=== PATIENT | female | born 1980 | race Caucasian/White ===

== ENCOUNTER → 2018-05-08 16:23 | Outpatient (CLI) | payer OTHER, SELFPAY ==
[2018-05-08 18:00] LABS: Thyroid Stimulating Hormone 3.14 uIU/mL (0.47-4.68)
== END ==
PROVIDERS: Family Provider Family Medicine; PCP Family Medicine; Visit Provider Family Medicine
DX: E03.9 Hypothyroidism, unspecified (principal)
CPT/HCPCS: 36415; 84443

== ENCOUNTER → 2018-05-27 10:02 | Outpatient (CLI) | payer OTHER, SELFPAY ==
[2018-05-27 11:18] LABS: Add Manual Diff / Slide Review NO; Basophils Percent Auto 0.5 % (0-2); Eosinophils Percent Auto 1.2 % (2-4); Hematocrit 35.1 % (36-46); Hemoglobin 12.3 g/dL (12.0-16.0); Lymphocytes Percent Auto 28.9 % (25-40); Mean Corpuscular HGB Conc 35.1 % (30-36); Mean Corpuscular Hemoglobin 30.7 PG (26-34); Mean Corpuscular Volume 87.4 fL (80-100); Neutrophils Absolute Auto 2700 /uL (3000-5900); Neutrophils Percent Auto 60.4 % (50-75); Platelet Count 210 X10^3/uL (150-400); Red Blood Cell Count 4.01 X10^6/uL (4.0-5.2); Red Cell Distribution Width 13.2 % (11.6-14.8); White Blood Cell Count 4.5 X10^3/uL (4.5-11.0)
[2018-05-27 12:13] LABS: Hepatitis B Surface Antigen NEGATIVE s/c (NEGATIVE); Rubella Antibody IgG 22.1 IU/mL (>15)
[2018-05-27 12:36] LABS: HIV 1 and 2 Antibody NEGATIVE (NEGATIVE); Hep C Virus Ab w/Reflex Quant NEGATIVE s/c (NEGATIVE)
[2018-05-27 12:42] LABS: Appearance Urine UA CLEAR; Bilirubin Urine UA NEGATIVE (NEGATIVE); Color Urine UA YELLOW; Glucose Urine UA NEGATIVE (Normal); Ketones Urine UA TRACE (NEGATIVE); Leukocyte Esterase Urine UA NEGATIVE (NEGATIVE); Nitrite Urine UA NEGATIVE (Negative); Occult Blood Urine UA NEGATIVE (Negative); Protein Urine UA TRACE (Negative); Specific Gravity Urine UA 1.025 (1.000-1.035); Urobilinogen Urine UA 0.2 E.U./dL (0.2); pH Urine UA 5.5 (4.5-8.0)
[2018-05-29 14:21] LABS: RPR Screen Nonreactive (Nonreactive)
[2018-05-29 15:20] LABS: HSV 2 IGG AB < 0.90 index (< 0.90)
== END ==
PROVIDERS: PCP Family Medicine; Visit Provider Obstetrics & Gynecology
DX: Z34.01 Encounter for supervision of normal first pregnancy, first trimester (principal); Z3A.01 Less than 8 weeks gestation of pregnancy
CPT/HCPCS: 36415; 80055; 81003; 86695; 86696; 86703; 86787; 86803; 86850; 86900; 86901; 87086

== ENCOUNTER 2018-10-08 21:20 | Emergency (ER) | payer OTHER, SELFPAY ==
[2018-10-08 21:25] VITALS: BP 140/84; PULSE 61; RESP 16; TEMP 36.9; O2SAT 99; BMI 34.2
--- NOTE | 2018-10-08 21:46 | ED_ITS ---
HPI - Abdominal Pain General Chief Complaint: Abdominal Pain Stated Complaint: Abd Pain,Sent from Walk In Time Seen by Provider: 10/08/18 21:45 Source: patient Mode of arrival: ambulatory Limitations: no limitations History of Present Illness HPI narrative: 38-year-old female sent over from the walk-in clinic for ab dominal pain. Patient states that has been going on for the past day. Seems to be generalized pain however also seems to be localized in the right lower quadrant. Some nausea but no vomiting. No urinary symptoms. Does take daily fiber however is missed the past couple days. Did have a bowel movement today. No urinary symptoms. Related Data Previous Rx's Medication Instructions Recorded levothyroxine 112 mcg tablet 112 mcg PO QAM #90 tab 09/04/18 Allergies Allergy/AdvReac Type Severity Reaction Status Date / Time amoxicillin Allergy Unknown HIVES Verified 10/08/18 21:24 Penicillins Allergy Unknown HIVES Verified 10/08/18 21:24 Review of Systems Constitutional Denies fever(s) Respiratory Denies cough Gastrointestinal Gastrointestinal: Reports abdominal pain, Reports nausea and Denies vomiting Genitourinary Denies dysuria Musculoskeletal Denies myalgias and Denies arthralgias Integumentary/Breasts Denies rash Neurologic Denies behavioral changes Psychiatric Denies behavioral changes [facility] Medical History Acne (Chronic 1994) Depression (Chronic 1994) Hayfever (Chronic 1991) Hypothyroidism (Chronic 2006) Chicken pox (Resolved 1985) Social History Smoking Status: Never smoker Exam Initial Vital Signs Initial Vital Signs: Vital Signs Temperature 98.5 F 10/08/18 21:25 Pulse Rate 61 10/08/18 21:25 Respiratory Rate 16 10/08/18 21:25 Blood Pressure 140/84 10/08/18 21:25 Pulse Oximetry 99 10/08/18 21:25 Const General: cooperative, healthy appearing, comfortable, well developed, well groomed and No acute distress Orientation: alert, awake and oriented x3 Resp Effort & Inspection: normal respiratory effort Auscultation: clear to auscultation bilaterally Cardio Rate: regular rate GI Inspection: non-distended Palpation: soft, No firm, No guarding and tender (Upper abdomen and right lower quadrant) Skin Lesions: no lesions Rashes: no rashes Neuro General: alert, awake and oriented x3 Extrem General: capillary refill normal Psych Appearance: grossly normal and well kempt Course Orders Ordered: ED Orders 10/08/18 21:52 CT abdomen pelvis w con Stat 10/08/18 22:50 Complete Blood Count AUTO DIFF Stat Comprehensive Metabolic Panel Stat Lipase Stat Discontinued Medications Sodium Chloride (Normal Saline 0.9%) 1,000 mls @ 1,000 mls/hr IV BOLUS ONE Stop: 10/08/18 22:51 Last Infusion: 10/08/18 23:51 Dose: 0 mls/hr Infusion: 10/08/18 23:23 Dose: 1,000 mls/hr Infusion: 10/08/18 23:11 Dose: 0 mls/hr Admin: 10/08/18 22:15 Dose: 1,000 mls/hr Vital Signs - 8 hr 10/08/18 21:25 10/09/18 00:15 10/09/18 01:26 Temperature 98.5 F Pulse Rate 61 62 63 Respiratory Rate 16 13 16 Blood Pressure 140/84 120/63 Blood Pressure [Right Arm] 126/77 Pulse Oximetry 99 100 100 MDM - Abdominal Pain Lab Data Attestation: I reviewed the patient's lab results. Result diagrams: 10/08/18 22:50 10/08/18 22:50 Lab Results 10/08/18 10/08/18 Range/Units 22:50 22:50 WBC 6.0 (4.5-11.0) X10^3/uL RBC 4.20 (4.0-5.2) X10^6/uL Hgb 12.1 (12.0-16.0) g/dL Hct 35.6 L (36-46) % MCV 84.7 (80-100) fL MCH 28.7 (26-34) PG MCHC 33.9 (30-36) % RDW 14.4 (11.6-14.8) % Plt Count 221 (150-400) X10^3/uL Neut % (Auto) 69.9 (50-75) % Lymph % (Auto) 21.7 L (25-40) % [place] % (Auto) 7.3 (3-14) % Eos % (Auto) 0.7 L (2-4) % Baso % (Auto) 0.4 (0-2) % Neut # (Auto) 4200 (0822-1664) /uL Lymph # (Auto) 1300 (3946-1744) /uL [place] # (Auto) 400 (0-900) /uL Eos # (Auto) 0 (0-450) /uL Baso # (Auto) 0 (0-100) /uL Sodium 140 (137-145) mmol/L Potassium 3.8 (3.4-5.1) mmol/L Chloride 104 (98-107) mmol/L Carbon Dioxide 25 (22-32) mmol/L BUN 12 (7-17) mg/dL Creatinine 0.70 (0.52-1.04) mg/dL Estimated GFR > 60.0 (>60) mL/min BUN/Creatinine Ratio 17.1 (6-22) Glucose 96 (70-100) mg/dL Calcium 8.7 (8.4-10.2) mg/dL Total Bilirubin 1.1 (0.2-1.3) mg/dL AST 20 (14-36) IU/L ALT 28 (9-52) IU/L Alkaline Phosphatase 78 (38-126) U/L Total Protein 7.4 (6.3-8.2) g/dL Albumin 4.2 (3.5-5.0) g/dL Globulin 3.2 (1.7-4.1) g/dL Albumin/Globulin Ratio 1.3 (1.0-2.8) Lipase 112 (23-300) U/L Point of care testing: Point of Care Testing Test Results Negative Urine Dip Bedside Urine Glucose Negative Bedside Urine Bilirubin - Negative Bedside Urine Ketone +/- 5 Urine Specific [place] 1.030 Bedside Urine Occult Blood - Negative Bedside Urine pH 5.5 Bedside Urine Protein - Negative Bedside Urine Urobilinogen - Negative Bedside Urine Nitrite - Negative Bedside Urine Leukocytes - Negative Esterase Imaging Data CT scan - abdomen: Radiologist's impression: Normal appendix No diverticulitis or bowel obstruction. Right ovarian cyst likely physiologic. Consider followup unexplained symptoms persist. MDM Narrative Medical decision making narrative: Patient benign abdomen. Labs unremarkable. CT scan shows a normal appendix. Does have a right ovarian cyst which could be the cause of her symptoms. It does mention on the CT scan a large amount of stool in the colon. This could also be the cause of her symptoms. Patient states that she has had constipation in the past. Will hold on further workup for now. Patient was given return precautions. She expressed understanding and agreement with plan. Discharge Plan Departure Patient Disposition: Home Clinical Impression: Abdominal pain Qualifiers: Abdominal location: generalized Qualified Code(s): R10.84 - Generalized abdominal pain Constipation Qualifiers: Constipation type: unspecified constipation type Qualified Code(s): K59.00 - Constipation, unspecified Discharge Date/Time: 10/09/18 01:30 Interventions: ED Discharge Assessment Last Done: 10/09/18 01:26 Instructions: Acute Abdominal Pain Activity Restrictions/Additional Instructions: Would recommend that you start taking a laxative like we discussed. Contact you r primary care doctor for a follow-up. Return to the emergency department for any new or worsening symptoms Prescriptions: No Action levothyroxine 112 mcg tablet 112 mcg PO QAM Qty: 90 RF: 0 Referrals: Danette Urrutia DO [Primary Care Provider] -
--- NOTE | 2018-10-08 21:52 | DI.CT.S_ITS ---
PROCEDURE: CT ABDOMEN PELVIS W CON INDICATIONS: right-sided abdominal pain, eval for appy TECHNIQUE: After the administration of intravenous contrast, 5 mm thick sections acquired from the diaphragm to the symphysis. 5 mm coronal and sagittal reformats were acquired. For radiation dose reduction, the following was used: automated exposure control, adjustment of mA and/or kV according to patient size. COMPARISON: None. FINDINGS: Image quality: Excellent. ABDOMEN: Lung bases: Lung bases are clear. Heart size is normal. Solid organs: Liver is normal in size and enhancement. Gallbladder is surgically absent. Biliary system is non dilated. Pancreas enhances normally. Spleen is enlarged in size measuring about 16.1 cm in length, and normal in enhancement. No adrenal nodules. Kidneys demonstrate normal size and enhancement, without hydronephrosis. Peritoneum and bowel: Bowel loops demonstrate normal wall thickness and caliber. No free fluid or air. Normal appendix. Nodes and vessels: No retroperitoneal or mesenteric adenopathy by size criteria. Aorta and inferior vena cava are normal in size. Miscellaneous: No ventral hernias. PELVIS: Genitourinary: Bladder wall thickness is normal. The dominant ovarian cyst in the right adnexa measuring about 4.6 cm. Trace amount of adjacent posterior right adnexal fluid. Miscellaneous: No inguinal hernias or adenopathy. Bones: No suspicious bony lesions. No vertebral body compression fractures. IMPRESSION: 1. Dominant right ovarian follicle with trace fluid suggesting recent cyst rupture. 2. Normal appendix. 3. Cholecystectomy. 4. Splenomegaly, potentially physiologic for the patient. Clinical correlation suggested. Concordant with preliminary report. Dictated by: Greer Salcido M.D. on 10/09/2018 at 8:04 Approved by: Greer Salcido M.D. on 10/09/2018 at 8:09
[2018-10-08] MEDS: SODIUM CHLORIDE 0.9% 1,000 ML 1000 ML IV (22:15)
[2018-10-08 22:55] LABS: Add Manual Diff / Slide Review NO; Basophils Absolute Auto 0 /uL (0-100); Basophils Percent Auto 0.4 % (0-2); Eosinophils Absolute Auto 0 /uL (0-450); Eosinophils Percent Auto 0.7 % (2-4); Hematocrit 35.6 % (36-46); Hemoglobin 12.1 g/dL (12.0-16.0); Lymphocytes Absolute Auto 1300 /uL (1100-4500); Lymphocytes Percent Auto 21.7 % (25-40); Mean Corpuscular HGB Conc 33.9 % (30-36); Mean Corpuscular Hemoglobin 28.7 PG (26-34); Mean Corpuscular Volume 84.7 fL (80-100); Monocytes Absolute Auto 400 /uL (0-900); Monocytes Percent Auto 7.3 % (3-14); Neutrophils Absolute Auto 4200 /uL (1500-7000); Neutrophils Percent Auto 69.9 % (50-75); Platelet Count 221 X10^3/uL (150-400); Red Cell Distribution Width 14.4 % (11.6-14.8)
[2018-10-08 23:04] LABS: Alanine Aminotransferase 28 IU/L (9-52); Albumin 4.2 g/dL (3.5-5.0); Albumin Globulin Ratio 1.3 (1.0-2.8); Alkaline Phosphatase 78 U/L (38-126); Aspartate Aminotransferase 20 IU/L (14-36); BUN Creatinine Ratio 17.1 (6-22); Bilirubin Total 1.1 mg/dL (0.2-1.3); Blood Urea Nitrogen 12 mg/dL (7-17); Calcium 8.7 mg/dL (8.4-10.2); Carbon Dioxide 25 mmol/L (22-32); Chloride 104 mmol/L (98-107); Estimated Glomerular Filt Rate > 60.0 mL/min (>60); Globulin 3.2 g/dL (1.7-4.1); Glucose 96 mg/dL (70-100); HEMOLYSIS < 15 (0-50); Lipase 112 U/L (23-300); Potassium 3.8 mmol/L (3.4-5.1); Sodium 140 mmol/L (137-145); Total Protein 7.4 g/dL (6.3-8.2)
[2018-10-09 00:15] VITALS: BP 126/77; PULSE 62; RESP 13; O2SAT 100
[2018-10-09 01:26] VITALS: BP 120/63; PULSE 63; RESP 16; O2SAT 100
== END 2018-10-09 01:30 | disposition home or self-care (01) ==
PROVIDERS: Emergency Provider Emergency Medicine; Family Provider Family Medicine; PCP Family Medicine
DX: R10.84 Generalized abdominal pain (principal); K59.00 Constipation, unspecified
CPT/HCPCS: 36591; 74177; 80053; 81003; 81025; 83690; 85025; 96360; 99283; 99284; Q9967

== ENCOUNTER → 2018-12-03 11:59 | Outpatient (CLI) | payer OTHER, SELFPAY ==
[2018-12-03 15:39] LABS: TSH w/ Reflex to FT4 2.84 uIU/mL (0.47-4.68)
== END ==
PROVIDERS: Family Provider Family Medicine; PCP Family Medicine; Visit Provider Family Medicine
DX: E03.9 Hypothyroidism, unspecified (principal)
CPT/HCPCS: 36415; 84443

== ENCOUNTER → 2018-12-30 16:20 | Outpatient (CLI) | payer OTHER, SELFPAY ==
--- NOTE | 2018-12-30 16:25 | DI.US.S_ITS ---
PROCEDURE: US OB <= 14 WEEKS FETUS INDICATIONS: DATING AND VIABILITY OUTSIDE/PRIOR DATING DATA: Last menstrual period (LMP): 10/30/18. LMP-based estimated date of delivery (ИРИНА): 08/06/19. First dating scan (date and location): 12/30/18. Estimated date of delivery (ИРИНА) from first dating scan: 07/31/19. TECHNIQUE: Real-time scanning was performed of the fetus and maternal pelvic organs, with image documentation. Endovaginal scanning was also performed to better visualize the fetus and maternal ovaries. COMPARISON: [facility], , OB <= 14 WEEKS FETUS, 06/04/2018, 17:31. FINDINGS: Embryo: [place]-rump length measures 2.7 cm corresponding to 9 weeks 4 days. Embryonic heart rate measures 171 beats per minute. Measurement variability in dating: +/- 4 weeks by LMP, +/- 7 days by mean sac diameter (use before 6 weeks gestation if crown-rump length not able to be measured), +/- 5 days by crown-rump length (up to 8 weeks 6 days gestation), +/- 7 days by crown-rump length (up to 13 weeks 6 days gestation). Maternal organs: Ovaries within normal limits with 2.5 cm simple right ovarian cyst and 2.2 cm mildly complex left corpus luteal cyst. Limited images through the kidneys demonstrate no hydronephrosis. IMPRESSION: 9 week 4 day single living IUP. Dictated by: Sukhjinder Mccormack [facility] Interpreted: Sammy Salazar MD on 12/30/2018 at 17:26 Approved by: Sammy Salazar M.D. on 12/31/2018 at 10:59
== END ==
PROVIDERS: Family Provider Family Medicine; PCP Family Medicine; Visit Provider Obstetrics & Gynecology
DX: Z34.81 Encounter for supervision of other normal pregnancy, first trimester (principal); Z3A.09 9 weeks gestation of pregnancy
CPT/HCPCS: 76801

== ENCOUNTER → 2019-01-09 14:18 | Outpatient (CLI) | payer OTHER, SELFPAY ==
[2019-01-09 15:06] LABS: Add Manual Diff / Slide Review NO; Basophils Absolute Auto 0 /uL (0-100); Basophils Percent Auto 0.3 % (0-2); Eosinophils Absolute Auto 100 /uL (0-450); Hematocrit 38.4 % (36-46); Hemoglobin 13.2 g/dL (12.0-16.0); Lymphocytes Absolute Auto 1600 /uL (1100-4500); Lymphocytes Percent Auto 24.5 % (25-40); Mean Corpuscular HGB Conc 34.2 % (30-36); Mean Corpuscular Hemoglobin 29.4 PG (26-34); Monocytes Absolute Auto 600 /uL (0-900); Monocytes Percent Auto 8.5 % (3-14); Neutrophils Absolute Auto 4400 /uL (1500-7000); Neutrophils Percent Auto 65.7 % (50-75); Platelet Count 249 X10^3/uL (150-400); Red Blood Cell Count 4.47 X10^6/uL (4.0-5.2); Red Cell Distribution Width 13.3 % (11.6-14.8); White Blood Cell Count 6.6 X10^3/uL (4.5-11.0)
[2019-01-09 16:17] LABS: Appearance Urine UA CLEAR; Bilirubin Urine UA NEGATIVE (NEGATIVE); Color Urine UA YELLOW; Glucose Urine UA NEGATIVE (Negative); Ketones Urine UA TRACE (NEGATIVE); Leukocyte Esterase Urine UA TRACE (NEGATIVE); Nitrite Urine UA NEGATIVE (Negative); Occult Blood Urine UA NEGATIVE (Negative); Protein Urine UA NEGATIVE (Negative); Specific Gravity Urine UA >=1.030 (1.000-1.035); Urobilinogen Urine UA 0.2 E.U./dL (0.2); pH Urine UA 5.5 (4.5-8.0)
[2019-01-09 16:20] LABS: RBC Urine None Seen (0-5/HPF)
[2019-01-09 16:29] LABS: Squamous Epithelial Cell Urine 1-5 /HPF (0-5/HPF); WBC Urine 5-10/HPF (0-5/HPF)
[2019-01-09 16:30] LABS: Amorphous Sediment Urine 1+; Bacteria Urine Few (2-10); Calcium Oxalate Crystals Urine Moderate; Free T4, Direct Thyroxine 1.23 ng/dL (0.78-2.19); Mucus Urine 1+ (Negative)
[2019-01-09 16:44] LABS: Thyroid Stimulating Hormone 2.15 uIU/mL (0.47-4.68)
[2019-01-09 16:50] LABS: Hepatitis B Surface Antigen NEGATIVE s/c (NEGATIVE); Rubella Antibody IgG 27.1 IU/mL (>15)
[2019-01-09 17:14] LABS: HIV 1 and 2 Antibody NEGATIVE (NEGATIVE); Hep C Virus Ab w/Reflex Quant NEGATIVE s/c (NEGATIVE)
[2019-01-13 22:23] LABS: RPR Screen Nonreactive (Nonreactive)
== END ==
PROVIDERS: Obstetrics & Gynecology; PCP Family Medicine; Visit Provider Family Medicine
DX: O09.529 Supervision of elderly multigravida, unspecified trimester (principal); E03.9 Hypothyroidism, unspecified
CPT/HCPCS: 36415; 80055; 81003; 81015; 84439; 84443; 86703; 86787; 86803; 86850; 86900; 86901; 87086

== ENCOUNTER → 2019-01-13 15:24 | Outpatient (CLI) | payer OTHER, SELFPAY ==
[2019-01-13 19:51] LABS: Urine N gonorrhoeae NOT DETECTED
[2019-01-13 19:52] LABS: Urine Chlamydia NOT DETECTED
== END ==
PROVIDERS: PCP Family Medicine; Visit Provider Obstetrics & Gynecology
DX: Z11.3 Encounter for screening for infections with a predominantly sexual mode of transmission (principal); Z11.8 Encounter for screening for other infectious and parasitic diseases
CPT/HCPCS: 87491; 87591

== ENCOUNTER → 2019-01-17 13:06 | Outpatient (CLI) | payer OTHER, SELFPAY ==
[2019-01-24 08:04] LABS: Informaseq SEE SEPERATE REPORT
== END ==
PROVIDERS: PCP Family Medicine; Visit Provider Obstetrics & Gynecology
DX: O09.529 Supervision of elderly multigravida, unspecified trimester (principal)
CPT/HCPCS: 36415; 81507

== ENCOUNTER → 2019-02-18 16:12 | Outpatient (CLI) | payer OTHER, SELFPAY ==
[2019-02-18 17:22] LABS: Thyroid Stimulating Hormone 3.38 uIU/mL (0.47-4.68)
[2019-02-22 16:19] LABS: AFP, Serum 14.1 ng/mL; Calc Gestational Age 16.7; Maternal Weight 233 lbs; Number of Fetuses NOT GIVEN; Prev Pregnancies Down Syndrome NOT GIVEN
== END ==
PROVIDERS: Family Provider Family Medicine; PCP Family Medicine; Visit Provider Obstetrics & Gynecology
DX: Z34.82 Encounter for supervision of other normal pregnancy, second trimester (principal); Z3A.15 15 weeks gestation of pregnancy
CPT/HCPCS: 36415; 82105; 84439; 84443

== ENCOUNTER → 2019-03-14 12:07 | Outpatient (CLI) | payer OTHER, SELFPAY ==
--- NOTE | 2019-03-14 12:07 | DI.US.S_ITS ---
PROCEDURE: US OB >= 14 WEEKS FETUS INDICATIONS: ANATOMY SCAN OUTSIDE/PRIOR DATING DATA: Last menstrual period (LMP): 10/30/18. LMP-based estimated date of delivery (ИРИНА): 08/06/19. First dating scan (date and location): 12/30/18. Estimated date of delivery (ИРИНА) from first dating scan: 07/31/19. TECHNIQUE: Real-time scanning was performed of the fetus, with image documentation and biometric measurements. COMPARISON: [facility], , OB <= 14 WEEKS FETUS, 01/13/2019, 15:51. FINDINGS: General: A single living intrauterine gestation is present. Presentation: Vertex. Placenta: Placental position is posterior, with marginal placenta previa with the inferior margin of the placenta extending down to the level of the internal cervical os. Amniotic fluid index: 14.3 cm cm, normal range is 5-24 cm. heart rate: 158 beats per minute. Maternal cervical canal: 3.7 cm long. Normal lower limit is 2.5 cm. biometrics: Biparietal diameter: 19 weeks 4 days Head circumference: 19 weeks 5 days Abdominal circumference: 20 weeks 2 days Femur length: 19 weeks 5 days Estimated gestational age from initial scan: 20 weeks 1 day Composite gestational age from present scan: 20 weeks 0 days Estimated weight and percentile: 327 g; 38 percentile Measurement variability for biometric dating: +/- 7 days from 14 weeks to 15 weeks 6 days gestation, +/- 10 days from 16 weeks to 21 weeks 6 days gestation, +/- 2 weeks from 22 weeks to 27 weeks 6 days gestation, +/- 3 weeks for 28 weeks gestation or later. weight reference: 4500 g or EFW >90/95% is considered macrosomia or large for gestational age. EFW <10% is small for gestational age. EFW 5% or less is considered intra-uterine growth restriction. Anatomic survey: Neuro: Ventricles are non-dilated at less than 10 mm. Cisterna magna is normal at 3-11 mm. Cerebellum is normal in size and morphology. Nuchal skin fold: Normal at less than 6 mm between 14-21 weeks gestational age. Face: Nose and lips, facial profile are normal. Spine: No evidence for spina bifida. Heart: 4-chambered heart is present, with normal ventricular outflow tracts. Diaphragm: Diaphragm is intact. Stomach: Left-sided stomach is present. Kidneys: No hydronephrosis. Normal is less than 5 mm in 2nd trimester, less than 7 mm in 3rd trimester. Cord: 3-vessel cord has orthotopic insertion. Bladder: Normal in size. Extremities: All 4 extremities identified. IMPRESSION: 1. Single living IUP redemonstrated and interval growth is normal. 2. Normal anatomic survey. 3. Marginal placenta previa. Followup recommended. Dictated by: Sukhjinder GRIFFITH Interpreted: Eryn Lima MD on 03/14/2019 at 14:16 Approved by: Eryn Lima M.D. on 03/14/2019 at 15:12
== END ==
PROVIDERS: Family Provider Family Medicine; PCP Family Medicine; Visit Provider Obstetrics & Gynecology
DX: Z34.82 Encounter for supervision of other normal pregnancy, second trimester (principal); Z3A.20 20 weeks gestation of pregnancy
CPT/HCPCS: 76811

== ENCOUNTER → 2019-04-23 16:18 | Outpatient (CLI) | payer OTHER, SELFPAY ==
[2019-04-23 18:04] LABS: Hemoglobin 10.7 g/dL (12.0-16.0)
[2019-04-23 18:23] LABS: GTT (PREG) 1 Hour PP 50gm Dose 126 mg/dL (76-139)
== END ==
PROVIDERS: Family Provider Family Medicine; PCP Family Medicine; Visit Provider Obstetrics & Gynecology
DX: Z34.82 Encounter for supervision of other normal pregnancy, second trimester (principal); Z3A.24 24 weeks gestation of pregnancy
CPT/HCPCS: 36415; 82950; 85014; 85018

== ENCOUNTER → 2019-07-02 16:58 | Outpatient (CLI) | payer OTHER, SELFPAY ==
[2019-07-03 12:40] LABS: Strep Grp B PCR NEG for Grp B Strep
== END ==
PROVIDERS: Family Provider Family Medicine; PCP Family Medicine; Visit Provider Obstetrics & Gynecology
DX: Z34.03 Encounter for supervision of normal first pregnancy, third trimester (principal); Z3A.35 35 weeks gestation of pregnancy
CPT/HCPCS: 87653

== ENCOUNTER 2019-08-02 14:33 | Inpatient (IN) | payer OTHER, SELFPAY ==
--- NOTE | 2019-08-02 16:08 | PM.OBHP.1 ---
OB HPI Date/Time Date of admission: 08/02/19 Date Patient Seen: 08/02/19 Time Patient Seen: 16:08 History of Present Condition Chief complaint: obs : 3 Para: 1 Estimated Date of Delivery: 07/31/19 Estimated Gestational Age (weeks): 40 Narrative: Rita Stewart is a 39 year old female admitted in active labor History of Present care: good care, initiated at week # (9), number of visits (11) and pounds weight gain (33) Dating criteria: based on 1st trimester US only Ultrasounds: normal mid trimester US Obstetrical complications: none Medical complications: none Preadmission Labs Blood type: O (+) positive -: Antibody screen: negative, GBS status: negative, HBsAG: negative, HIV: negative and RPR/VDLR: negative -: Chlamydia screen: not detected and Gonorrhea screen: not detected -: Rubella: immune and Varicella: immune HCAB: negative PAP: Normal Cell-free DNA: Normal 1 hr GTT: 126 Prior (ies) History: 05/17/16 39 week gestation 7 lb 2 oz female vaginal delivery Evaluation Evaluation Baseline heart rate: 120 Variability: Moderate (11-25) monitor accelerations: Present monitor decelerations: Absent Contraction Frequency (minutes): 2 Uterine Contraction Intensity: Moderate Category of Tracing: I Cervical dilation (cm): 6 Cervical effacement (%): 80 station: -3 PFS Medical History (Updated 05/15/19 @ 14:41 by Lizzy Harden MD) Acne (Chronic 1994) Chicken pox (Resolved 1985) Depression (Chronic 1994) Elderly multigravida (Acute) Hayfever (Chronic 1991) Hypothyroidism (Chronic 2006) Surgical History Anesthesia (Resolved) History of surgery on arm (Resolved) Status post cholecystectomy (Resolved) Social History Smoking Status: Never smoker Meds Home Medications and Allergies Home Medications Medication Instructions Recorded Confirmed Type prenat.vits,donald,[id number] 1 tab PO DAILY 12/18/18 12/18/18 History levothyroxine 125 mcg tablet 125 mcg PO QAM #90 tab 06/02/19 Rx Allergies Allergy/AdvReac Type Severity Reaction Status Date / Time amoxicillin Allergy Unknown HIVES Verified 10/08/18 21:24 Penicillins Allergy Unknown HIVES Verified 10/08/18 21:24 Review of Systems Review of Systems Narrative: Patient denies headaches, scotomata, epigastric pain. Good movement. No rupture membranes. Increasing contractions. ROS Unobtainable: All systems reviewed & are unremarkable except as noted in HPI and below Exam Vital Signs (past 8 hours): Blood pressure 136/78, pulse of 85, temperature 35.7? Narrative Exam Narrative: HEENT exam within normal limits. Lungs are clear to auscultation percussion. Heart is regular rate and rhythm no S3-S4 or murmurs. Abdomen is gravid. Fetus is vertex. Extremities with trace edema and nontender. Assessment and Plan Assessment and Plan Assessment and Plan narrative: 40 week gestation in active labor. Anticipate vaginal delivery. Hypothyroidism stable.
[2019-08-02 17:10] LABS: Add Manual Diff / Slide Review NO; Basophils Absolute Auto 0 /uL (0-100); Basophils Percent Auto 0.3 % (0-2); Eosinophils Absolute Auto 0 /uL (0-450); Eosinophils Percent Auto 0.3 % (2-4); Hematocrit 38.6 % (36-46); Hemoglobin 13.1 g/dL (12.0-16.0); Lymphocytes Absolute Auto 1700 /uL (1100-4500); Lymphocytes Percent Auto 16.7 % (25-40); Mean Corpuscular Hemoglobin 29.4 PG (26-34); Mean Corpuscular Volume 86.5 fL (80-100); Monocytes Absolute Auto 600 /uL (0-900); Monocytes Percent Auto 5.6 % (3-14); Neutrophils Absolute Auto 7800 /uL (1500-7000); Neutrophils Percent Auto 77.1 % (50-75); Platelet Count 252 X10^3/uL (150-400); Red Blood Cell Count 4.46 X10^6/uL (4.0-5.2); Red Cell Distribution Width 14.1 % (11.6-14.8)
[2019-08-02 17:13] VITALS: BP 128/75
[2019-08-02] MEDS: LACTATED RINGERS 1,000 ML 100 ML IV ×2 (17:19→18:55)
[2019-08-02] MEDS: FENT 2MCG/ML BUPIV 0.125% EPI 200 MCG/100 ML PLAST..BAG 10 MCG EPIDURAL (18:04)
--- NOTE | 2019-08-02 21:43 | PM.OBPRVD ---
Labor & Delivery Delivery date: 08/02/19 Intrapartal events: None Delivery monitor: external FHT and external uterine Route of delivery: L&D Laceration Description: None Estimated blood loss (mL): 200 Anesthesia type: Epidural Narrative: Patient arrived on Labor and delivery in active labor. She received an epidural catheter for pain control. She was AROM for clear fluid. heart tones category 1 to category 2 throughout labor. She delivered spontaneously, over an intact perineum. The viable female infant was placed on the maternal abdomen. After the cord stopped pulsating the cord was clamped, cut, and cord bloods obtained. The placenta delivered spontaneously, intact, with 3 vessels. There were no cervical, vaginal, or perineal tears. Both mother doing well. [place] Baby 1: Infant gender: Female Presentation: vertex position: Right Occiput Anterior Placenta delivery description: Spontaneous cord vessel description: 3 Vessels score (1 min): 9 score (5 min): 9 Plan for aftercare: Routine post vaginal delivery
[2019-08-03] MEDS: IBUPROFEN 600 MG TABLET PO ×2 (01:24→07:26)
[2019-08-03 06:14] LABS: Hematocrit 35.5 % (36-46); Hemoglobin 12.4 g/dL (12.0-16.0)
--- NOTE | 2019-08-03 18:44 | P.PNOB_ITS ---
Subjective - OB Subjective Patient comments: no complaints [place] baby status: nursing well feeding status: exclusively breast feeding Date Patient Seen: 08/03/19 Time Patient Seen: 18:45 Interval history: Patient is doing well 1 day . She is breast-feeding without difficulty. She is urinating and ambulating well. Pain is minimal. No headaches, scotomata, epigastric pain. Exam Vital Signs (past 8 hours): Blood pressure 121/77, pulse of 88, temperature 98.9? Narrative Exam Narrative: Abdomen is soft, nontender. Uterus is firm, at U, nontender. Mild lochia. Extremities without edema and nontender. Patient is O positive and rubella immune and she received the Tdap in the 3rd trimester. Objective Labs Result Diagrams: 08/03/19 06:00 Labs: Laboratory Results - last 24 hr 08/03/19 06:00 Hgb 12.4 Hct 35.5 L Assessment & Plan Assessment and Plan (1) Vaginal delivery: Status: Acute Assessment and plan: Patient doing well 1st day period Current Visit: Yes Plan day: 1 plan OB: routine care Time Spent With Patient Time: Total time spent is greater than 50% in coordination of care (as documented) at patient's floor/unit and/or counseling patient: Time with patient: less than 15 minutes
--- NOTE | 2019-08-04 06:39 | PM.OBDS.1 ---
Discharge Providers Provider Date of admission: 08/02/19 14:33 Discharge Date: 08/04/19 Primary care physician: Danette Urrutia DO Consults: 08/03/19 21:41 Consult to Fiction And Nonfiction Writer Prose Routine Comment: Discharge provider: Kaylan Giraldo MD Summary Hospital Course Date Patient Seen: 08/04/19 Time Patient Seen: 06:39 Procedures: Epidural catheter, spontaneous vaginal delivery Hospital Course: Patient arrived on Labor and delivery in active labor. She received an epidural catheter for pain control. Total length of labor 15 hours. She had a spontaneous vaginal delivery of a viable female weighing 8 lb 5 oz. She is urinating well, ambulatory, pain under control. No headache, scotomata, epigastric pain. Peripartum Data Delivery Method: Natural Vaginal Laceration description: None Procedures: Epidural catheter, spontaneous vaginal deliver complications: none 1: Gender: Female Disposition of : home Discharge Diagnosis (1) Vaginal delivery: Status: Acute Status at Discharge Cognitive/behavioral status at discharge: oriented Functional status at discharge: independent ambulation Overall status at discharge: patient is progressing back to baseline Time Spent with Patient Time attestation: Total time spent providing and/or coordinating discharge services: Time spent: Less than 30 minutes Objective Labs Result Diagrams: 08/03/19 06:00 Exam Vital Signs (past 8 hours): Blood pressure 122/81, pulse 68, temperature 97.9? Narrative Exam Narrative: Patient's abdomen is soft, nontender. Uterus is firm, at U, appropriately tender. Mild lochia. Extremities without edema and nontender. Patient's blood type is O positive, she is rubella immune, she received Tdap in the 3rd trimester. Discharge Plan Discharge Plan Patient Disposition: Home Discharge orders & Medications Prescriptions: Continued levothyroxine 125 mcg tablet 125 mcg PO QAM Qty: 90 RF: 2 prenat.vits,donald,lpz-xzyl-zflss tablet 1 tab PO DAILY RF: 0 Follow up/Referrals: Kaylan Giraldo MD [Physician] - 1 Month ( exam) Danette Urrutia DO [Primary Care Provider] - Diet/Activity/Treatments Diet: Regular Activity: Nothing in vagina for 4 weeks Skin/Wound/Dressing Care Report to your healthcare provider any signs of infection, such as:: chills, fever and increased pain Discharge Data Primary Care Provider: Danette Urrutia
== END 2019-08-04 11:30 | disposition home or self-care (01) | DRG 807 ==
PROVIDERS: Admitting Provider Specialist; Family Provider Family Medicine; PCP Family Medicine; Visit Provider Specialist
DX: O80 Encounter for full-term uncomplicated delivery (principal); Z37.0 Single live birth; Z3A.39 39 weeks gestation of pregnancy; E03.9 Hypothyroidism, unspecified
CPT/HCPCS: 01967; 36415; 59050; 59400; 59409; 85014; 85018; 85025; 86850; 86900; 86901; G0379

== ENCOUNTER → 2019-09-03 16:20 | Outpatient (CLI) | payer OTHER, SELFPAY ==
[2019-09-03 18:32] LABS: TSH w/ Reflex to FT4 4.29 uIU/mL (0.47-4.68)
== END ==
PROVIDERS: Family Provider Family Medicine; PCP Family Medicine; Referring Provider Specialist; Visit Provider Specialist
DX: E03.9 Hypothyroidism, unspecified (principal)
CPT/HCPCS: 36415; 84443

== ENCOUNTER → 2020-08-04 16:52 | Outpatient (CLI) | payer OTHER, SELFPAY ==
[2020-08-04 20:53] LABS: Urine Chlamydia NOT DETECTED; Urine N gonorrhoeae NOT DETECTED
== END ==
PROVIDERS: Family Provider Family Medicine; PCP Family Medicine; Visit Provider Obstetrics & Gynecology
DX: Z34.90 Encounter for supervision of normal pregnancy, unspecified, unspecified trimester (principal)
CPT/HCPCS: 87491; 87591

== ENCOUNTER → 2020-08-20 15:09 | Outpatient (CLI) | payer OTHER, SELFPAY ==
[2020-08-20 16:02] LABS: Add Manual Diff / Slide Review NO; Basophils Absolute Auto 0 /uL (0-100); Basophils Percent Auto 0.2 % (0-2); Eosinophils Absolute Auto 100 /uL (0-450); Eosinophils Percent Auto 1.2 % (2-4); Hematocrit 37.1 % (36-46); Hemoglobin 12.8 g/dL (12.0-16.0); Lymphocytes Absolute Auto 1500 /uL (1100-4500); Lymphocytes Percent Auto 25.2 % (25-40); Mean Corpuscular HGB Conc 34.5 % (30-36); Mean Corpuscular Hemoglobin 30.4 PG (26-34); Mean Corpuscular Volume 88.1 fL (80-100); Monocytes Absolute Auto 400 /uL (0-900); Neutrophils Absolute Auto 3900 /uL (1500-7000); Neutrophils Percent Auto 66.4 % (50-75); Platelet Count 224 X10^3/uL (150-400); Red Blood Cell Count 4.21 X10^6/uL (4.0-5.2); Red Cell Distribution Width 12.5 % (11.6-14.8); White Blood Cell Count 5.8 X10^3/uL (4.5-11.0)
[2020-08-20 16:14] LABS: Appearance Urine UA CLEAR; Bilirubin Urine UA NEGATIVE (NEGATIVE); Color Urine UA YELLOW; Glucose Urine UA NEGATIVE (Negative); Ketones Urine UA NEGATIVE (NEGATIVE); Leukocyte Esterase Urine UA NEGATIVE (NEGATIVE); Nitrite Urine UA NEGATIVE (Negative); Occult Blood Urine UA TRACE-LYSED (Negative); Protein Urine UA NEGATIVE (Negative); Specific Gravity Urine UA >=1.030 (1.000-1.035); Urobilinogen Urine UA 0.2 E.U./dL (0.2)
[2020-08-20 16:20] LABS: pH Urine UA 5.5 (4.5-8.0)
[2020-08-20 16:22] LABS: Free T4, Direct Thyroxine 1.25 ng/dL (0.78-2.19)
[2020-08-20 16:36] LABS: Thyroid Stimulating Hormone 2.46 uIU/mL (0.47-4.68)
[2020-08-20 16:52] LABS: Hepatitis B Surface Antigen NEGATIVE s/c (NEGATIVE); Rubella Antibody IgG 15.1 IU/mL (>15)
[2020-08-20 16:54] LABS: HIV 1 & 2 Ab/Ag 4th Gen Combo NEGATIVE (NEGATIVE); Hep C Virus Ab w/Reflex Quant NEGATIVE s/c (NEGATIVE)
[2020-08-21 04:16] LABS: RPR Screen Non Reactive (Non Reactive)
[2020-08-21 07:09] LABS: Varicella IgG Antibody 436 index (Immune >165)
== END ==
PROVIDERS: Family Provider Family Medicine; PCP Family Medicine; Referring Provider Obstetrics & Gynecology; Visit Provider Obstetrics & Gynecology
DX: O09.521 Supervision of elderly multigravida, first trimester (principal); E03.9 Hypothyroidism, unspecified; Z36.0 Encounter for antenatal screening for chromosomal anomalies
CPT/HCPCS: 36415; 80055; 81003; 81420; 84439; 84443; 86787; 86803; 86850; 86900; 86901; 87086; 87389

== ENCOUNTER → 2020-09-30 16:52 | Outpatient (CLI) | payer OTHER, SELFPAY ==
[2020-10-04 20:40] LABS: AFP Value 19.5 ng/mL (.); Gest Age on Col Date 16.6 weeks (.); Insulin Dep Diabetes No (.); OSBR Risk 1IN 10000 (.); Results Report (.); Test Results *Screen Negative* (.)
== END ==
PROVIDERS: Family Provider Family Medicine; PCP Family Medicine; Referring Provider Obstetrics & Gynecology; Visit Provider Obstetrics & Gynecology
DX: Z34.82 Encounter for supervision of other normal pregnancy, second trimester (principal); Z3A.16 16 weeks gestation of pregnancy
CPT/HCPCS: 36415; 82105

== ENCOUNTER → 2020-10-27 14:40 | Outpatient (CLI) | payer OTHER, SELFPAY ==
--- NOTE | 2020-10-27 14:41 | DI.US.S_ITS ---
PROCEDURE: US OB >= 14 WEEKS FETUS INDICATIONS: ANATOMY OUTSIDE/PRIOR DATING DATA: Last menstrual period (LMP): 06/06/2020. LMP-based estimated date of delivery (ИРИНА): 03/13/2021. First dating scan (date and location): 10/27/2020. Estimated date of delivery (ИРИНА) from first dating scan: 03/10/2021. TECHNIQUE: Real-time scanning was performed of the fetus, with image documentation and biometric measurements. Endovaginal scanning: Not indicated COMPARISON: [facility], , OB >= 14 WEEKS FETUS, 07/02/2019, 16:44. FINDINGS: General: A single living intrauterine gestation is present. Presentation: Variable Placenta: Placental position is anterior, without previa. Amniotic fluid index: 16.5 cm, normal range is 5-24 cm. heart rate: 150 beats per minute. Maternal cervical canal: 4.6 cm long. Normal lower limit is 2.5 cm. biometrics: Biparietal diameter: 4.9 cm, 20 weeks, 6 days Head circumference: 18.8 cm, 21 weeks, 1 day Abdominal circumference: 16.3 cm, 21 weeks, 3 days Femur length: 3.1 cm, 19 weeks, 5 day Estimated gestational age from initial scan: 20 weeks, 3 days. Composite gestational age from present scan: 20 weeks, 6 days Estimated weight and percentile: 370 g, 60 percentile. Measurement variability for biometric dating: +/- 7 days from 14 weeks to 15 weeks 6 days gestation, +/- 10 days from 16 weeks to 21 weeks 6 days gestation, +/- 2 weeks from 22 weeks to 27 weeks 6 days gestation, +/- 3 weeks for 28 weeks gestation or later. weight reference: 4500 g or EFW >90/95% is considered macrosomia or large for gestational age. EFW <10% is small for gestational age. EFW 5% or less is considered intra-uterine growth restriction. Anatomic survey: Neuro: Ventricles are non-dilated at less than 10 mm. Cisterna magna is normal at 3-11 mm. Cerebellum is normal in size and morphology. Nuchal skin fold: Normal at less than 6 mm between 14-21 weeks gestational age. Face: Nose and lips, facial profile are normal. Spine: No evidence for spina bifida. Heart: 4-chambered heart is present, with normal ventricular outflow tracts. Diaphragm: Diaphragm is intact. Stomach: Left-sided stomach is present. Kidneys: No hydronephrosis. Normal is less than 5 mm in 2nd trimester, less than 7 mm in 3rd trimester. Cord: Cord insertion is not well seen secondary to lie. Bladder: Normal in size. Extremities: All 4 extremities identified. IMPRESSION: 1. Single live intrauterine with fetus in variable presentation. heart rate is 150 beats per minute. Estimated gestational age based on current study is 20 weeks, 6 days. Estimated weight is at 60th percentile. Normal amount of amniotic fluid. 2. Cord insertion is not well seen due to lie. Rest of the anatomic survey is normal. Dictated by: Sammy Salazar M.D. on 10/27/2020 at 18:02 Approved by: Sammy Salazar M.D. on 10/27/2020 at 18:06
== END ==
PROVIDERS: Family Provider Family Medicine; PCP Family Medicine; Referring Provider Obstetrics & Gynecology; Visit Provider Obstetrics & Gynecology
DX: Z34.82 Encounter for supervision of other normal pregnancy, second trimester (principal); Z3A.20 20 weeks gestation of pregnancy
CPT/HCPCS: 76811

== ENCOUNTER → 2020-12-04 11:30 | Outpatient (CLI) | payer OTHER, SELFPAY ==
[2020-12-04 13:15] LABS: Hematocrit 34.8 % (36-46); Hemoglobin 11.6 g/dL (12.0-16.0)
[2020-12-04 13:32] LABS: GTT (PREG) 1 Hour PP 50gm Dose 104 mg/dL (76-139)
[2020-12-04 13:45] LABS: Free T4, Direct Thyroxine 1.05 ng/dL (0.78-2.19)
[2020-12-04 13:59] LABS: Thyroid Stimulating Hormone 2.29 uIU/mL (0.47-4.68)
== END ==
PROVIDERS: Family Provider Family Medicine; PCP Family Medicine; Referring Provider Obstetrics & Gynecology; Visit Provider Obstetrics & Gynecology
DX: Z34.82 Encounter for supervision of other normal pregnancy, second trimester (principal); E03.9 Hypothyroidism, unspecified; Z3A.26 26 weeks gestation of pregnancy
CPT/HCPCS: 36415; 82950; 84439; 84443; 85014; 85018

== ENCOUNTER → 2021-02-07 15:39 | Outpatient (CLI) | payer OTHER, SELFPAY ==
--- NOTE | 2021-02-07 15:40 | DI.US.S_ITS ---
PROCEDURE: US PERIPH VENOUS LOW EXTREM RT INDICATIONS: RLE PAIN, SWELLING, R/O DVT TECHNIQUE: Real-time imaging, as well as color and pulse Doppler interrogation, were performed of the lower extremity deep veins from the inguinal ligament to the popliteal fossa. COMPARISON: None. FINDINGS: The common femoral, femoral and popliteal veins are normally compressible, and free of intraluminal thrombus. Color and pulse Doppler demonstrate normal phasic intraluminal flow. There is normal augmentation response to distal compression maneuver. Superficial thrombophlebitis in the region of pain, without extension into the greater saphenous vein. IMPRESSION: No evidence of deep venous thrombosis. Superficial thrombophlebitis in the area of pain. Dictated by: Dat Yip M.D. on 02/07/2021 at 16:55 Approved by: Dat Yip M.D. on 02/07/2021 at 16:56
== END ==
PROVIDERS: Family Provider Family Medicine; PCP Family Medicine; Referring Provider Obstetrics & Gynecology; Visit Provider Obstetrics & Gynecology
DX: O22.00 Varicose veins of lower extremity in pregnancy, unspecified trimester (principal); O22.20 Superficial thrombophlebitis in pregnancy, unspecified trimester; I80.01 Phlebitis and thrombophlebitis of superficial vessels of right lower extremity; M79.89 Other specified soft tissue disorders
CPT/HCPCS: 93971

== ENCOUNTER → 2021-02-14 14:55 | Outpatient (CLI) | payer OTHER, SELFPAY ==
[2021-02-15 11:50] LABS: Strep Grp B PCR NEG for Grp B Strep
== END ==
PROVIDERS: Family Provider Family Medicine; PCP Family Medicine; Visit Provider Obstetrics & Gynecology
DX: Z34.83 Encounter for supervision of other normal pregnancy, third trimester (principal); Z3A.36 36 weeks gestation of pregnancy
CPT/HCPCS: 87653

== ENCOUNTER 2021-03-10 17:30 | Outpatient (CLI) | payer OTHER, SELFPAY ==
--- NOTE | 2021-03-10 18:26 | PM.OBTRLD ---
Visit Information Visit Information Date of evaluation: 03/10/21 Primary OB Provider: Lizzy Harden On-call OB Provider: Kaylan Giraldo Reason for Evaluation: Yes rule out labor Vital Signs Vital Signs: Blood pressure 127/74, pulse of 85, temperature 36.6? [facility] Medical History (Updated 03/10/21 @ 18:29 by Kaylan Giraldo MD) Abnormal Pap smear of cervix Acne (1994) Chicken pox (1985) Depression (1994) Elderly multigravida Hayfever (1991) Hypothyroidism (2006) UTI (urinary tract infection) during Varicose veins of both lower extremities Surgical History (Updated 07/20/20 @ 13:01 by Kirstie Starr, RN) Anesthesia H/O wisdom tooth extraction History of surgery on arm Status post cholecystectomy (~2011) Family History (Updated 07/20/20 @ 13:24 by Kirstie Starr, RN) Grandmother Cancer Stroke Lung cancer Mother Diabetes mellitus In vitro fertilization Grandfather Myocardial infarct Father No known health problems Family/Other Breast cancer Family/Other Psoriasis Social History (Updated 07/20/20 @ 08:36 by Kirstie Starr, RN) marital status: number of children: 2 household members: children lives independently: Yes pets and animals: Yes (X 1 dog) education level: master's degree occupational status: employed current occupational exposures/hazards: Yes Previous occupational history: Teaching special kim needs: No Smoking Status: Never smoker second hand exposure: No alcohol intake: former substance use type: does not use Review of Systems Review of Systems Narrative: Patient complaining of contractions but no leakage of fluid. No signs or symptoms of preeclampsia Evaluation Evaluation Baseline heart rate: 130 Variability: Moderate (11-25) monitor accelerations: Present Monitor Decelerations: Absent Contraction Frequency (minutes): 5 Uterine Contraction Intensity: Mild Category of Tracing: Reactive Status: Category l Cervical dilation (cm): 2 Cervical effacement (%): 50 station: -3 Diagnosis, Plan/Disposition Final Diagnosis (1) False labor: Status: Acute (2) 38 weeks gestation of : Status: Acute Plan/Disposition Plan: Patient came in for evaluation for possible labor. She is not in active labor. She was discharged home to return if her symptoms increase. OB Disposition: home
== END 2021-03-10 18:45 | disposition home or self-care (01) ==
LOC: OB 03-11 07:34
PROVIDERS: Family Provider Family Medicine; PCP Family Medicine; Referring Provider Obstetrics & Gynecology; Visit Provider Obstetrics & Gynecology
DX: O47.1 False labor at or after 37 completed weeks of gestation (principal); Z3A.38 38 weeks gestation of pregnancy
CPT/HCPCS: 59025; G0378; G0379

== ENCOUNTER 2021-03-11 21:30 | Inpatient (IN) | payer OTHER, SELFPAY ==
[2021-03-11 21:35] VITALS: BP 144/72
[2021-03-11] MEDS: OXYTOCIN 10 UNIT/ML VIAL IM (22:13)
--- NOTE | 2021-03-11 22:29 | PM.OBHP.1 ---
OB HPI Date/Time Date of admission: 03/11/21 Date Patient Seen: 03/11/21 Time Patient Seen: 22:29 History of Present Condition Chief complaint: : 4 Para: 2 Estimated Date of Delivery: 03/13/21 Estimated Gestational Age (weeks): 39+5 Narrative: Rita Stewart is a 40 year old female 4 para 2 at 39-,5/7 weeks gestation who presented in active labor. History of Present care: good care, initiated at week # (8), number of visits (11) and pounds weight gain (35) Dating criteria: LMP confirmed by 1st trimester US Ultrasounds: normal 1st trimester US and normal mid trimester US Obstetrical complications: none Medical complications: none Preadmission Labs Blood type: O (+) positive -: Antibody screen: negative, GBS status: negative, HBsAG: negative, HIV: negative and RPR/VDLR: negative -: Chlamydia screen: not detected and Gonorrhea screen: not detected -: Rubella: immune and Varicella: immune HCT: 34.8 HCAB: negative PAP: Normal (2017) Cell-free DNA: normal, male Urine: negative 1 hr GTT: 104 Prior (ies) History: 2 1 SAB Evaluation Evaluation Baseline heart rate: 140 Variability: Moderate (11-25) monitor accelerations: Present Monitor Decelerations: Absent Contraction Frequency (minutes): 3 Uterine Contraction Intensity: Strong/Firm Status: Category l [facility] Medical History (Updated 03/10/21 @ 18:29 by Kaylan Giraldo MD) Abnormal Pap smear of cervix Acne (1994) Chicken pox (1985) Depression (1994) Elderly multigravida Hayfever (1991) Hypothyroidism (2006) UTI (urinary tract infection) during Varicose veins of both lower extremities Surgical History (Updated 07/20/20 @ 13:01 by Kirstie Starr RN) Anesthesia H/O wisdom tooth extraction History of surgery on arm Status post cholecystectomy (~2011) Family History (Updated 07/20/20 @ 13:24 by Kirstie Starr, L[place]) Grandmother Cancer Stroke Lung cancer Mother Diabetes mellitus In vitro fertilization Grandfather Myocardial infarct Father No known health problems Family/Other Breast cancer Family/Other Psoriasis Social History (Updated 07/20/20 @ 08:36 by Kirstie Starr RN) marital status: number of children: 2 household members: children lives independently: Yes pets and animals: Yes (X 1 dog) education level: master's degree occupational status: employed current occupational exposures/hazards: Yes Previous occupational history: Teaching special kim needs: No Smoking Status: Never smoker second hand exposure: No alcohol intake: former substance use type: does not use Meds Home Medications and Allergies Home Medications Medication Instructions Recorded Confirmed Type prenat.vits,donald,sob-vsba-mujwe 1 tab PO DAILY 12/18/18 03/08/21 History L.acidoph, paracasei,B. lactis 10 cell PO 07/20/20 03/08/21 History billion cell capsule (Digestive Advantage Advanced Probiotic) doxylamine succinate 25 mg tablet 25 mg PO BEDTIME PRN 07/20/20 03/08/21 History (Unisom (doxylamine)) omega-3 fatty acids 1,000 mg 1,000 mg PO DAILY 07/20/20 03/08/21 History capsule (Fish Oil Concentrate) levothyroxine 125 mcg tablet 125 mcg PO DAILY #90 tab 10/20/20 03/08/21 Rx citalopram 10 mg tablet (Celexa) 10 mg PO DAILY #30 tab 03/08/21 03/08/21 Rx Allergies Allergy/AdvReac Type Severity Reaction Status Date / Time amoxicillin Allergy Unknown HIVES Verified 03/08/21 15:50 Penicillins Allergy Unknown HIVES Verified 03/08/21 15:50 Exam Narrative Exam Narrative: Generally: Patient is sitting up in bed, holding infant, no acute distress Placenta still in place. Assessment and Plan Assessment and Plan Assessment and Plan narrative: Assessment: 40-year-old 4 para 2 with a precipitous delivery at 39-,5/7 weeks gestation Plan: Delivery of placenta and routine care Time Spent with Patient Total time spent with greater than 50% in coordination of care (as documented) at patient's floor/unit and/or counseling patient:: 15-24 minutes
--- NOTE | 2021-03-11 22:33 | P.PCNOB_ITS ---
Labor & Delivery Delivery date: 03/11/21 Intrapartal Events: Precipitous Labor < 3 hours Cervical ripening method: none Induction method: none Delivery monitor: external FHT and external uterine Route of delivery: Episiotomy description: None L&D Laceration Description: None Estimated blood loss (mL): 100 Anesthesia Type: None Complications: None Narrative: Patient had a precipitous delivery and upon MD arrival to the hospital the baby was out and the cord was cut. The delivery happened at 9:53 p.m.. The placenta delivered intact with a three-vessel cord at 10:11 p.m.. 10 units of IM Pitocin were given due to no IV access. Fundus was massaged to firm. The perineum was inspected and there were no lacerations. No anesthesia. weight 8 lb 10.9 oz. Apgars 9 at 1 minute and 9 at 5 minutes. . Mom and stable to recovery. [place] Baby 1: Infant gender: Male Presentation: vertex Placenta delivery description: Spontaneous Cord Vessel Description: 3 Vessels score (1 min): 9 score (5 min): 9 weight: 8 lb 10 oz Plan for aftercare: Routine care
[2021-03-11 22:40] LABS: Add Manual Diff / Slide Review NO; Basophils Absolute Auto 0 /uL (0-100); Basophils Percent Auto 0.1 % (0-2); Eosinophils Absolute Auto 0 /uL (0-450); Eosinophils Percent Auto 0.3 % (2-4); Hematocrit 36.4 % (36-46); Hemoglobin 11.9 g/dL (12.0-16.0); Lymphocytes Absolute Auto 1500 /uL (1100-4500); Lymphocytes Percent Auto 16.4 % (25-40); Mean Corpuscular HGB Conc 32.8 % (30-36); Mean Corpuscular Hemoglobin 27.3 PG (26-34); Mean Corpuscular Volume 83.4 fL (80-100); Monocytes Absolute Auto 600 /uL (0-900); Monocytes Percent Auto 6.2 % (3-14); Neutrophils Absolute Auto 6800 /uL (1500-7000); Platelet Count 260 X10^3/uL (150-400); Red Blood Cell Count 4.36 X10^6/uL (4.0-5.2); Red Cell Distribution Width 14.3 % (11.6-14.8); White Blood Cell Count 8.9 X10^3/uL (4.5-11.0)
[2021-03-11 22:47] LABS: COVID19 - ADMIT (NP swab/PCR) Negative (Negative)
[2021-03-11] MEDS: ACETAMINOPHEN 325 MG TABLET 650 MG PO (23:16)
[2021-03-11] MEDS: IBUPROFEN 600 MG TABLET PO (23:17)
[2021-03-12] MEDS: OXYCODONE IR 5 MG TABLET PO ×2 (01:18→05:23)
[2021-03-12] MEDS: IBUPROFEN 600 MG TABLET PO ×3 (05:23→16:54)
[2021-03-12] MEDS: LEVOTHYROXINE 125 MCG TABLET PO (05:23)
[2021-03-12] MEDS: ACETAMINOPHEN 325 MG TABLET 650 MG PO ×3 (05:24→16:54)
[2021-03-12 06:16] LABS: Hematocrit 32.6 % (36-46)
[2021-03-12] MEDS: CITALOPRAM 10 MG TABLET PO (08:23)
[2021-03-12] MEDS: PRENATAL VIT,CALC/IRON/FOLIC 1 TABLET 1 TAB PO (08:24)
[2021-03-12] MEDS: DOCUSATE 100 MG CAPSULE PO (08:24)
--- NOTE | 2021-03-12 10:18 | PM.OBDS.1 ---
Discharge Providers Provider Date of admission: 03/11/21 21:30 Discharge Date: 03/12/21 Primary care physician: Danette Urrutia DO Consults: 03/12/21 22:35 Consult to Retail Clerk Routine Comment: Discharge provider: Lizzy Harden MD Summary Hospital Course Date Patient Seen: 03/12/21 Time Patient Seen: 10:19 Diagnoses: 39-,5/7 weeks gestation Precipitous labor and delivery Hospital Course: Patient is a 40-year-old 4 para 3 presented in active labor and had a precipitous delivery 40 minutes after arriving at the hospital. course is unremarkable. No perineal/vaginal lacerations. Peripartum Data Infant Delivery Method: Natural Vaginal Laceration Description: None Episiotomy description: None Procedures: Precipitous vaginal delivery complications: none 1: Gender: Male Disposition of : home Status at Discharge Cognitive/behavioral status at discharge: oriented Functional status at discharge: independent ambulation Overall status at discharge: patient is progressing back to baseline Time Spent with Patient Time attestation: Total time spent providing and/or coordinating discharge services: Time spent: Less than 30 minutes Objective Labs Result Diagrams: 03/12/21 06:08 Labs: Laboratory Results - last 24 hr 03/11/21 03/11/21 03/11/21 21:44 22:25 22:25 WBC 8.9 RBC 4.36 Hgb 11.9 L Hct 36.4 MCV 83.4 MCH 27.3 MCHC 32.8 RDW 14.3 Plt Count 260 Neut % (Auto) 77.0 H Lymph % (Auto) 16.4 L [place] % (Auto) 6.2 Eos % (Auto) 0.3 L Baso % (Auto) 0.1 Neut # (Auto) 6800 Lymph # (Auto) 1500 [place] # (Auto) 600 Eos # (Auto) 0 Baso # (Auto) 0 SARS-CoV-2 (PCR) Negative Blood Type O Positive Antibody Screen Negative 03/12/21 06:08 WBC RBC Hgb 11.0 L Hct 32.6 L MCV MCH MCHC RDW Plt Count Neut % (Auto) Lymph % (Auto) [place] % (Auto) Eos % (Auto) Baso % (Auto) Neut # (Auto) Lymph # (Auto) [place] # (Auto) Eos # (Auto) Baso # (Auto) SARS-CoV-2 (PCR) Blood Type Antibody Screen Exam Narrative Exam Narrative: Generally: Patient lying in bed, no acute distress Fundus: Firm at U -1 Extremities: Trace edema, negative [place] Discharge Plan Discharge Plan Patient Disposition: Home Provider Discharge Comment: Call with fever, chills, or bleeding vaginally more than a pad an hour Ibuprofen 600 mg every 6 hours as needed for cramping Tylenol 650 mg every 6 hours as needed Discharge orders & Medications Prescriptions: Continued levothyroxine 125 mcg tablet 125 mcg PO DAILY Qty: 90 RF: 1 prenat.vits,donald,xkp-opeg-owxbx tablet 1 tab PO DAILY RF: 0 omega-3 fatty acids [Fish Oil Concentrate] 1,000 mg capsule 1,000 mg PO DAILY RF: 0 Digestive Advantage Advanced 10 billion cell capsule PO RF: 0 citalopram [Celexa] 10 mg tablet 10 mg PO DAILY Qty: 30 RF: 6 Discontinued Unisom (doxylamine) 25 mg tablet 25 mg PO BEDTIME PRNRF: 0 Follow up/Referrals: Lizzy Harden MD [Physician] - 6 Weeks Diet/Activity/Treatments Diet: Regular Activity: Nothing in the vagina for 6 weeks Skin/Wound/Dressing Care Report to your healthcare provider any signs of infection, such as:: chills, fever, increased pain and unusual drainage Visit Report/Discharge Packet Instructions: DI for Labor and Delivery, Vaginal Discharge Data Primary Care Provider: Danette Urrutia
[2021-03-12] MEDS: LANOLIN OINT 7 GM 1 APPLIC TOP (16:54)
== END 2021-03-12 17:45 | disposition home or self-care (01) | DRG 807 ==
PROVIDERS: Admitting Provider Obstetrics & Gynecology; Family Provider Family Medicine; PCP Family Medicine; Referring Provider Obstetrics & Gynecology; Visit Provider Obstetrics & Gynecology
DX: O62.3 Precipitate labor (principal); Z37.0 Single live birth; Z3A.39 39 weeks gestation of pregnancy; Z20.822 Contact with and (suspected) exposure to COVID-19
CPT/HCPCS: 36415; 59025; 59400; 85014; 85018; 85025; 86850; 86900; 86901; 87635; C9803; G0379; J2590

== ENCOUNTER → 2021-10-10 07:05 | Outpatient (CLI) | payer OTHER, SELFPAY ==
[2021-10-10 07:36] LABS: BUN Creatinine Ratio 13.4 (6-22); Blood Urea Nitrogen 9 mg/dL (7-17); Calcium 8.8 mg/dL (8.4-10.2); Carbon Dioxide 27 mmol/L (22-32); Chloride 106 mmol/L (98-107); Estimated Glomerular Filt Rate > 60.0 mL/min (>60); Glucose 101 mg/dL (70-100); HEMOLYSIS < 15 (0-50); Potassium 3.5 mmol/L (3.4-5.1); Sodium 140 mmol/L (137-145)
[2021-10-10 08:39] LABS: TSH w/ Reflex to FT4 2.77 uIU/mL (0.47-4.68)
== END ==
PROVIDERS: Family Provider Family Medicine; PCP Family Medicine; Referring Provider Physician Assistant; Visit Provider Physician Assistant
DX: R63.1 Polydipsia (principal)
CPT/HCPCS: 36415; 80048; 84443

== ENCOUNTER → 2023-09-04 10:15 | Outpatient (CLI) | payer OTHER, SELFPAY ==
[2023-09-04 11:56] LABS: Cholesterol 104 mg/dL (140-199); HDL Cholesterol 33 mg/dL (40-60); LDL Cholesterol Calculated 55 mg/dL (<100); Triglycerides 78 mg/dL (35-150)
[2023-09-04 12:25] LABS: TSH w/ Reflex to FT4 1.77 uIU/mL (0.47-4.68)
== END ==
PROVIDERS: Family Provider Family Medicine; PCP Student in an Organized Health Care Education/Training Program; Referring Provider Student in an Organized Health Care Education/Training Program; Visit Provider Student in an Organized Health Care Education/Training Program
DX: E03.9 Hypothyroidism, unspecified (principal); E78.5 Hyperlipidemia, unspecified
CPT/HCPCS: 36415; 80061; 84443